=== PATIENT | male | born 1975 | race Caucasian/White ===

== ENCOUNTER 2016-09-25 03:04 | Emergency (ER) | payer SELFPAY ==
[~2016-09-25] VITALS: Ht 170.2 cm; Wt 76.5 kg
[2016-09-25 03:12] VITALS: Ht 170.2 cm; Wt 76.5 kg
--- NOTE | 2016-09-25 03:35 | ERA ---
ER Documentation Chief Complaint Date/Time DATE: 09/25/16 TIME: 03:35 Chief Complaint anxiety/chest pain/had argument with girlfriend/paranoid HPI The patient is 41-year-old male, was brought to the ER by the EMS, is presenting with acute chest discomfort, acute anxiety. He has been drinking, using illicit drug. He feels very anxious as if he is having acute anxiety attack, he then went to [facility] who then called EMS to bring him to the hospital. He denies homicidal/suicidal ideation. He is paranoid. He had an argument with his girlfriend earlier today. He has a home to go back. He denies headache, neck pain, chest pain, dyspnea, abdominal pain, vomiting, dysuria, diarrhea. He smokes, drinks Past medical history: Anxiety Past surgical history: None ROS All systems reviewed and are negative except as per history of present illness. Allergies Allergies: Coded Allergies: No Known Drug Allergies (Verified Allergy, Unknown, 09/25/16) Physical Exam Vitals Vital Signs Date Time Temp Pulse Resp B/P Pulse Ox O2 Delivery O2 Flow Rate FiO2 09/25/16 03:12 98.3 71 20 153/96 98 Physical Exam Const: No acute distress. Head: Atraumatic. Eyes: Normal Conjunctiva. ENT: Normal External Ears, Nose and Mouth. Neck: Full range of motion. No meningismus. Resp: Clear to auscultation bilaterally. Cardio: Regular rate and rhythm. Abd: Soft, non distended, normal bowel sounds, non tender. Skin: No petechiae or rashes. Back: No midline or flank tenderness. Ext: No cyanosis, or edema. Neur: Awake and alert. No focal deficit Psych: Normal Mood and Affect. Procedures/MDM EKG: Read by emergency physician Rate/Rhythm: Normal Sinus Rhythm 75 beats/min QRS, ST, T-waves: No ST elevation, no T inversion Impression: EKG MEDICAL MAKING DECISION: The patient is a 41-year-old male, presenting with acute anxiety attack, possibly drug induced anxiety attack. The differential diagnoses considered include but are not limited to psychosis, drug-induced psychosis, anxiety attack, panic attack, decompensated psychiatric illness Departure Diagnosis: Primary Impression: Anxiety attack Condition: Stable Comments He did not want to stay for further evaluation The patient signed out AGAINST MEDICAL ADVICE. Risks, benefits, alternatives were explained to the patient. Risks include but not limited to and permanent disability The patient's blood pressure was elevated (>120/80) but appears stable without evidence of hypertension emergency or urgency. The patient was counseled about the risks of hypertension and urged to pursue outpatient monitoring and therapy within a week with their primary care physician. AMBER MARTÍNEZ MD Sep 25, 2016 03:35
[2016-09-25] MEDS ORDERED: ATEN-51 PO (03:53)
== END 2016-09-25 04:15 | disposition left against medical advice (07) ==
LOC: E/R 03:04
DX: F41.9 Anxiety disorder, unspecified (principal); R40.2242 Coma scale, best verbal response, confused conversation, at arrival to emergency department; R07.9 Chest pain, unspecified; R40.2142 Coma scale, eyes open, spontaneous, at arrival to emergency department; R40.2362 Coma scale, best motor response, obeys commands, at arrival to emergency department
CPT/HCPCS: 93005